=== PATIENT | female | born 1970 | race Caucasian/White ===

== ENCOUNTER 2021-03-26 09:19 | Emergency (ER) | payer OTHER, SELFPAY ==
--- NOTE | ~2021-03-26 | US_ITS ---
EXAMINATION: US thyroid DATE: 03/26/2021 10:19 INDICATION: Hypercalcemia. Hyperparathyroidism. TECHNIQUE: Multiple ultrasound images of the thyroid were obtained. COMPARISON: None. FINDINGS: The right thyroid lobe measures 4.2 x 1.7 x 1.5 cm. The left thyroid lobe measures 4.1 x 2.0 x 1.3 c m. There is normal echotexture and echogenicity throughout the thyroid gland. No discrete nodules id entified. Normal vascular flow is present. IMPRESSION: 1. Normal thyroid. Reviewed, dictated and finalized at location A. PRESIDENT OF MANUFACTURING IMPRESSION: 1. Normal thyroid.
--- NOTE | ~2021-03-26 | XR_ITS ---
EXAMINATION: XR chest 2V DATE: 03/26/2021 10:02 INDICATION: Chest pain. Palpitations. TECHNIQUE: Frontal and lateral views of the chest were obtained. COMPARISON: None. FINDINGS: There is no pneumonia, pleural effusion, or pneumothorax. The heart size is normal. There a re changes of anterior fusion procedure in cervical spine. There are surgical clips in the abdomen. IMPRESSION: 1. No acute cardiopulmonary disease. Reviewed, dictated and finalized at location A. NESS INFO CONSULTANT
[2021-03-26 09:24] VITALS: BP 147/96; PULSE 135; RESP 16; TEMP 36.9; O2SAT 97
[2021-03-26 09:25] VITALS: BP 158/107; PULSE 136; RESP 14; O2SAT 100
[2021-03-26 09:27] VITALS: BP 147/96; PULSE 135; RESP 17; O2SAT 100
[2021-03-26 09:30] VITALS: BP 172/94; PULSE 132; RESP 14; O2SAT 96
--- NOTE | 2021-03-26 09:33 | ECG_ITS ---
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
[2021-03-26 09:57] LABS: Basophils Absolute Auto 0.1 K/mm3 (0.0-0.1); Basophils Percent Auto 1.3 % (0.2-1.2); Eosinophils Absolute Auto 0.2 K/mm3 (0-0.3); Hematocrit 42.2 % (37.0-47.0); Hemoglobin 14.6 g/dL (12.0-15.0); Immature Granulocyte Absolute 0.02 K/mm3 (0.00-0.031); Immature Granulocyte Percent A 0.3 % (0-0.5); Lymphocytes Absolute Auto 1.75 K/mm3 (0.9-3.2); Lymphocytes Percent Auto 28.8 % (18.3-44.2); Mean Corpuscular HGB Conc 34.6 g/dl (32-36); Mean Corpuscular Hemoglobin 30.1 pg (26-34); Mean Platelet Volume 8.5 fl (7.4-10.4); Monocytes Absolute Auto 0.6 K/mm3 (0.1-0.6); Neutrophils Absolute Auto 3.4 K/mm3 (1.3-6.7); Neutrophils Percent Auto 56.6 % (45.5-73.1); Platelet Count Result 430 k/mm3 (150-375); Red Blood Count 4.85 M/mm3 (4.2-5.4); Red Cell Distribution Width 12.3 % (11.5-14.5); White Blood Count 6.1 K/mm3 (4.5-10.0)
[2021-03-26 10:03] LABS: Alanine Aminotransferase 15 U/L (4-35); Albumin Level 4.5 g/dL (3.5-5.1); Alkaline Phosphatase 115 U/L (38-126); Anion Gap 14 mmol/L (8-16); Aspartate Amino Transferase 23 U/L (14-36); Bilirubin,Total 0.8 mg/dL (0.2-1.3); Blood Urea Nitrogen 9 mg/dL (7-17); Calcium 9.3 mg/dL (8.4-10.2); Carbon Dioxide 22 mmol/L (22-30); Chloride 101 mmol/L (98-107); Estimated CRCL calculation 84 ml/min; Estimated Glomerular Filt Rate > 60; Glucose 168 mg/dL (65-110); Lipase 83 U/L (23-300); Potassium 3.3 mmol/L (3.4-5.0); Sodium 137 mmol/L (137-145)
[2021-03-26 10:05] LABS: INR 0.9; Partial Thromboplastin Time 27.4 SECONDS (22.3-36.8); Prothrombin Time 12.5 Seconds (11.1-14.7)
[2021-03-26 10:14] LABS: Troponin I < 0.012 ng/mL (0.000-0.034)
[2021-03-26] MEDS: LABETALOL HCL INJ 100 MG/20 ML VIAL 20 MG IV PUSH (10:16)
--- NOTE | 2021-03-26 11:00 | PC.NURSE ---
Assumed care of pt. at this time. Report from Tamiko., RN
--- NOTE | 2021-03-26 11:01 | ED.GENADULT ---
HPI - General Adult General Chief complaint: Arrhythmia/Palpitations Stated complaint: Palpitations. Time Seen by Provider: 03/26/21 09:36 Source: patient Mode of arrival: ambulatory Limitations: no limitations History of Present Illness HPI narrative: Patient is a 51-year-old female with history of tachycardia who presents with tachycardia that began a couple of hours prior to arrival. Patient reports that she is also having intermittent crampy chest pains. Patient reports that this has been occurring for many months on and off and she had a stress test recently which was negative. Patient denies having stents placed. She denies being on a beta-armand. Patient reports that she is already been prescribed amlodipine and losartan for her blood pressure. Patient reports that her calcium levels were elevated and they had some concern for thyroid abnormalities that she was scheduled to have ultrasound today but is not seen in the emergency room. Patient denies fever, chills, shortness of breath, changes in vision or hearing, excessive thirst, diarrhea, syncope, hair loss. Related Data Home Medications Medication Instructions Recorded Confirmed amlodipine 03/26/21 03/26/21 losartan 03/26/21 vitamin D3-vitamin K2 (MK4) 03/26/21 Allergies Allergy/AdvReac Type Severity Reaction Status Date / Time nabumetone [From Relafen] Allergy Itching Verified 03/26/21 10:21 Review of Systems Review of Systems: CONSTITUTIONAL: Denies fever, chills, or sweats. EYES: Denies visual changes, redness, or discharge. ENT: Denies rhinorrhea, congestion, sore throat, or otalgia. CARDIOVASCULAR: Reports intermittent chest pain denies palpitations, or edema. RESPIRATORY: Denies cough or dyspnea. GASTROINTESTINAL: Denies abdominal pain, nausea, vomiting, or diarrhea. GENITOURINARY: Denies dysuria or hematuria. SKIN: Denies rash or itching. MUSCULOSKELETAL: Denies back pain, joint pain, or myalgia. NEUROLOGIC: Denies headache, numbness, dizziness, or weakness. PSYCHIATRIC: Denies anxiety or depression. Exam Narrative: GENERAL: Well-appearing, well-nourished, and in no acute distress. HEAD: Normocephalic, atraumatic. EYES: PERRLA and EOMI. NECK: Supple. No thyroid enlargement or masses appreciated. Range of motion intact. CHEST: Clear to auscultation. No respiratory distress. No wheezes rales or rhonchi HEART: Increased rate and regular rhythm. No murmur heard. Normal peripheral pulses. ABDOMEN: Soft, nontender, nondistended, normal active bowel sounds. EXTREMITIES: Normal range of motion. No edema. SKIN: Warm, dry, no rash. NEURO: No focal deficits. Alert and oriented x3. PSYCH: Mood and affect slightly anxious and agitated. Course Vital Signs Vital signs: Vital Signs Temperature 98.4 F 03/26/21 09:24 Pulse Rate 135 H 03/26/21 09:24 Respiratory Rate 16 03/26/21 09:24 Blood Pressure 147/96 H 03/26/21 09:24 Pulse Oximetry 97 03/26/21 09:24 Temperature 98.4 F 03/26/21 09:24 Pulse Rate 85 03/26/21 12:20 Respiratory Rate 19 03/26/21 12:20 Blood Pressure 145/88 H 03/26/21 12:20 Pulse Oximetry 100 03/26/21 12:20 Medical Decision Making MDM Narrative Medical decision making narrative: Patient reports thyroid abnormality for which she was scheduled for ultrasound today but would not be able to receive it due to ER visit. Will order thyroid ultrasound. Patient came to the ER with some tachycardia noted as high as 105-135. Sinus rhythm. She reports right bundle branch block but is not appreciated on her EKG. Only sinus tachycardia at 132 bpm. Patient does not have any diaphoresis, syncope accompanying the tachycardia. Patient reports hypercalcemia and abnormalities of her electrolytes which were not noted on her CMP. Patient TSH is also within normal limits. Patient has been given 20 mg of labetalol and her heart rate is now in the 80s. She reports feeling great. She states her next appointment with her PC
[2021-03-26 11:25] VITALS: BP 150/87; PULSE 96; RESP 18; O2SAT 100
[2021-03-26 12:20] VITALS: BP 145/88; PULSE 85; RESP 19; O2SAT 100
== END 2021-03-26 12:20 | disposition home or self-care (01) ==
PROVIDERS: Physician Assistant; Emergency Provider Emergency Medicine
DX: R00.0 Tachycardia, unspecified (principal)
CPT/HCPCS: 36415; 71046; 76536; 80053; 83690; 84443; 84484; 85025; 85610; 85730; 93005; 96374; 99284